=== PATIENT | female | born 2000 | race Caucasian/White ===

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

== ENCOUNTER 2020-01-05 17:45 | Emergency (ER) | payer MEDICAID ==
[2020-01-05 18:15] VITALS: BP 149/90; PULSE 105
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
== END 2020-01-05 18:25 | disposition home or self-care (01) ==
LOC: VM.ED 17:45
DX: K91.840 Postprocedural hemorrhage of a digestive system organ or structure following a digestive system procedure (principal); J45.909 Unspecified asthma, uncomplicated; F32.9 Major depressive disorder, single episode, unspecified; K21.9 Gastro-esophageal reflux disease without esophagitis; E66.9 Obesity, unspecified; Y83.6 Removal of other organ (partial) (total) as the cause of abnormal reaction of the patient, or of later complication, without mention of misadventure at the time of the procedure; Z90.49 Acquired absence of other specified parts of digestive tract; Z88.0 Allergy status to penicillin; Z88.8 Allergy status to other drugs, medicaments and biological substances; Z79.899 Other long term (current) drug therapy; Z79.51 Long term (current) use of inhaled steroids
CPT/HCPCS: 99283

== ENCOUNTER 2020-06-11 00:03 | Emergency (ER) | payer MEDICAID ==
[2020-06-11 00:11] VITALS: BP 142/83; PULSE 99
--- NOTE | 2020-06-11 09:40 | EDM.PDOC ---
ED HPI GENERAL MEDICAL PROBLEM - General Chief Complaint: ENT Problem Stated Complaint: foreign body to ear Time Seen by Provider: 06/11/20 00:05 Source of Information: Reports: Patient History Limitations: Reports: No Limitations - History of Present Illness INITIAL COMMENTS - FREE TEXT/NARRATIVE: Pt. is concerned that she has a q-tip tip in her R ear. She states that she was using a q-tip and states that the tip fell off and she thinks it might be in her ear. She complains of some fullness to the R ear but states she is able to hear. Pt. denies any trauma, bleeding, or injury to the ear. Onset Date: 06/10/20 Location: Reports: Head - Related Data Allergies Allergy/AdvReac Type Severity Reaction Status Date / Time amoxicillin Allergy Rash Verified 06/11/20 00:04 metformin Allergy Hives Verified 06/11/20 00:04 Home Meds: Home Meds Albuterol [Proair HFA] 2 puff INH Q4HR PRN 11/12/14 [History] Ethinyl Estradiol/Drospirenone [[place]en 28 Tablet] 1 each PO DAILY 10/23/19 [History] FLUoxetine HCl [Fluoxetine HCl] 40 mg PO DAILY 10/23/19 [History] Omeprazole 20 mg PO DAILY 10/23/19 [History] Cyclobenzaprine [Flexeril] 10 mg PO BEDTIME 11/28/19 [History] Fluticasone Propionate [Flonase] 1 spray IN DAILY 11/28/19 [History] Ibuprofen [Ibu] 600 mg PO Q8H PRN 11/28/19 [History] Mometasone/Formoterol [Dulera 100 Mcg/5 Mcg Inhaler] 2 puff IH BID 11/28/19 [History] Past Medical History - Past Health History Medical/Surgical History: Denies Medical/Surgical History Respiratory History: Reports: Asthma Gastrointestinal History: Reports: Cholelithiasis, GERD 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 closed right side multiple rib fx. vertebral compression fx. multiple pelvic fx Psychiatric History: Reports: Depression Endocrine/Metabolic History: Reports: Obesity/BMI 30+, Other (See Below) Other Endocrine/Metabolic History: insulin resistance - Past Surgical History HEENT Surgical History: Reports: Tonsillectomy Other HEENT Surgeries/Procedures: [place] teeth ED ROS GENERAL - Review of Systems Review Of Systems: Comprehensive ROS is negative, except as noted in HPI. ED EXAM, GENERAL - Physical Exam Exam: See Below Exam Limited By: No Limitations General Appearance: Alert, WD/WN, No Apparent Distress Eye Exam: Right Eye: Other (scant amount of clear fluid noted behind R TM. No obvious effusion noted. No trauma noted to the TM or the external canal.) Ears: Normal External Exam, Normal Canal, Hearing Grossly Normal, Normal TMs Ear Exam: Right Ear: Other (No foreign body noted in ear in question.) Course - Vital Signs Last Recorded V/S: Last Vital Signs Temp 36.2 C 06/11/20 00:08 Pulse 99 06/11/20 00:08 Resp 16 06/11/20 00:08 BP 142/83 H 06/11/20 00:08 Pulse Ox 98 06/11/20 00:08 Departure - Departure Time of Disposition: 00:38 Disposition: Home, Self-Care 01 Clinical Impression: Fluid collection of middle ear - Discharge Information Referrals: PCP,Antonyobtain [Primary Care Provider] - Forms: ED Department Discharge Additional Instructions: There is no foreign body but there is a small amount of fluid in the middle ear which may be causing the fullness. This will hopefully resolve on its own, but if it doesn't you can try over the counter benadryl or sudafed to help with getting rid of the fluid. Follow-up in clinic as needed. Sepsis Event Note (ED) - Evaluation Sepsis Screening Result: No Definite Risk - Focused Exam Vital Signs: Vital Signs Temp Pulse Resp BP Pulse Ox 06/11/20 00:08 36.2 C 99 16 142/83 H 98 - Problem List Review Problem List Initiated/Reviewed/Updated: Yes - Assessment/Plan Plan: There is no foreign body but there is a small amount of fluid in the middle ear which may be causing the fullness. This will hopefully resolve on its own, but if it doesn't you can try over the counter benadryl or sudafed to help with getting rid of the fluid. Follow-up in clinic as needed.
== END 2020-06-11 00:14 | disposition home or self-care (01) ==
LOC: VM.ED 00:03
DX: H74.8X1 Other specified disorders of right middle ear and mastoid (principal); J45.909 Unspecified asthma, uncomplicated; F32.9 Major depressive disorder, single episode, unspecified; E66.9 Obesity, unspecified; K21.9 Gastro-esophageal reflux disease without esophagitis; Z88.1 Allergy status to other antibiotic agents; Z88.8 Allergy status to other drugs, medicaments and biological substances; Z79.899 Other long term (current) drug therapy
CPT/HCPCS: 99282; 99283-GF

== ENCOUNTER 2020-08-19 17:09 | Emergency (ER) | payer MEDICAID ==
--- NOTE | 2020-08-19 18:18 | EDM.PDOC ---
ED HPI GENERAL MEDICAL PROBLEM - General Chief Complaint: ENT Problem Stated Complaint: FEVER,SORE THROAT,SOB Time Seen by Provider: 08/19/20 18:00 Source of Information: Reports: Patient History Limitations: Reports: No Limitations - History of Present Illness INITIAL COMMENTS - FREE TEXT/NARRATIVE: Patient presents to ER with complaints of headache, blurred vision at times, s ore throat, sinus congestion and cough. Does have a history of asthma, states has been using her proventil inhaler more than normal. Works at [employer], does feel the fog machine has exacerbated her asthma but worries about COVID exposure as she is around many people each day. Denies fever, does feel chilled at times. Feels short of breath. No nausea or vomiting. Has not lost her sense of taste or smell. Onset: Gradual Duration: Day(s): Location: Reports: Head, Chest Severity: Mild Associated Symptoms: Reports: Cough, Fever/Chills, Headaches, Shortness of Breath. Denies: Chest Pain, cough w sputum, Loss of Appetite, Nausea/Vomiting - Related Data Allergies Allergy/AdvReac Type Severity Reaction Status Date / Time amoxicillin Allergy Rash Verified 06/11/20 00:04 metformin Allergy Hives Verified 06/11/20 00:04 Home Meds: Home Meds Albuterol [Proair HFA] 2 puff INH Q4HR PRN 11/12/14 [History] Ethinyl Estradiol/Drospirenone [Maria Del Carmen 28 Tablet] 1 each PO DAILY 10/23/19 [Hist ory] FLUoxetine HCl [Fluoxetine HCl] 40 mg PO DAILY 10/23/19 [History] Omeprazole 20 mg PO DAILY 10/23/19 [History] Cyclobenzaprine [Flexeril] 10 mg PO BEDTIME 11/28/19 [History] Fluticasone Propionate [Flonase] 1 spray IN DAILY 11/28/19 [History] Ibuprofen [Ibu] 600 mg PO Q8H PRN 11/28/19 [History] Mometasone/Formoterol [Dulera 100 Mcg/5 Mcg Inhaler] 2 puff IH BID 11/28/19 [History] Past Medical History - Past Health History Medical/Surgical History: Denies Medical/Surgical History Respiratory History: Reports: Asthma Gastrointestinal History: Reports: Cholelithiasis, GERD 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 closed right side multiple rib fx. vertebral compression fx. multiple pelvic fx Psychiatric History: Reports: Depression Endocrine/Metabolic History: Reports: Obesity/BMI 30+, Other (See Below) Other Endocrine/Metabolic History: insulin resistance - Past Surgical History HEENT Surgical History: Reports: Tonsillectomy Other HEENT Surgeries/Procedures: [place] teeth Social & Family History - Tobacco Use Smoking Status *Q: Unknown Ever Smoked ED ROS GENERAL - Review of Systems Review Of Systems: See Below Constitutional: Reports: Chills, Malaise, Fatigue. Denies: Fever, Weakness, Decreased Appetite HEENT: Reports: Rhinitis, Throat Pain, Vision Change. Denies: Ear Pain, Sinus Problem Respiratory: Reports: Shortness of Breath, Wheezing, Cough Cardiovascular: Denies: Chest Pain, Edema, Lightheadedness Endocrine: Reports: Fatigue GI/Abdominal: Denies: Abdominal Pain, Nausea, Vomiting : Reports: No Symptoms Musculoskeletal: Reports: No Symptoms Skin: Reports: No Symptoms Neurological: Reports: No Symptoms Psychiatric: Reports: No Symptoms ED EXAM, GENERAL - Physical Exam Exam: See Below Exam Limited By: No Limitations General Appearance: Alert, WD/WN, No Apparent Distress Ears: Normal External Exam, Normal TMs Nose: Normal Inspection, Normal Mucosa, Clear Rhinorrhea Throat/Mouth: Normal Inspection, Normal Oropharynx Head: Normocephalic Neck: Normal Inspection, Supple, Non-Tender Respiratory/Chest: No Respiratory Distress, Lungs Clear, Normal Breath Sounds Cardiovascular: Regular Rate, Rhythm GI/Abdominal: Normal Bowel Sounds, No Distention Extremities: Normal Inspection, No Pedal Edema Neurological: Alert, Oriented Skin Exam: Warm, Dry Course - Orders/Labs/Meds Orders: Active Orders 24 hr Category Date Time Status predniSONE [Take Home: predniSONE 20 MG, 2 Tab Pack] Med 08/19/20 18:19 Once 1 packet PO ONETIME ONE Labs: Laboratory Tests 08/19/20 08/19/20 Range/Units 17:25 17:45 SARS CoV-2 RNA Rapid CIARRA Invalid A Negative (NEGATIVE) Meds: Medications Discontinued Medications Generic Name Dose Route Start Last Admin Trade Name Freq PRN Reason Stop Dose Admin Prednisone 1 packet 08/19/20 18:19 Take Home: Prednisone 20 Mg, 2 Tab Pack PO 08/19/20 18:20 ONETIME ONE - Re-Assessments/Exams Free Text/Narrative Re-Assessment/Exam: 08/19/20 18:28 COVID testing negative. Departure - Departure Time of Disposition: 18:28 Disposition: Home, Self-Care 01 Condition: Good Clinical Impression: Upper respiratory infection, Asthma - Discharge Information *PRESCRIPTION DRUG MONITORING PROGRAM REVIEWED*: No *COPY OF PRESCRIPTION DRUG MONITORING REPORT IN PATIENT LU: No Instructions: Viral Respiratory Infection, [id number] Referrals: Martha Pittman MD [Primary Care Provider] - Forms: ED Department Discharge Additional Instructions: 1. Rest 2. Push fluids 3. Tylenol or ibuprofen for fever or discomfort 4. Prednisone 40 mg daily for 5 days 5. Follow up with PCP if symptoms persist - My Orders Last 24 Hours: My Active Orders 08/19/20 18:19 predniSONE [Take Home: predniSONE 20 MG, 2 Tab Pack] 1 packet PO ONETIME ONE - Assessment/Plan Last 24 Hours: My Active Orders 08/19/20 18:19 predniSONE [Take Home: predniSONE 20 MG, 2 Tab Pack] 1 packet PO ONETIME ONE
[2020-08-19] MEDS ORDERED: Take Home: predniSONE 20 MG, 2 Tab Pack PO ONE (18:19)
[2020-08-19 19:38] VITALS: BP 137/72; PULSE 88
== END 2020-08-19 19:05 | disposition home or self-care (01) ==
LOC: VM.ED 17:09
DX: J06.9 Acute upper respiratory infection, unspecified (principal); J45.909 Unspecified asthma, uncomplicated; F32.9 Major depressive disorder, single episode, unspecified; K21.9 Gastro-esophageal reflux disease without esophagitis; Z79.899 Other long term (current) drug therapy; E66.9 Obesity, unspecified; Z68.31 Body mass index [BMI] 31.0-31.9, adult; Z20.828 Contact with and (suspected) exposure to other viral communicable diseases; Z88.1 Allergy status to other antibiotic agents; Z88.8 Allergy status to other drugs, medicaments and biological substances
CPT/HCPCS: 99284; J7512; U0002

== ENCOUNTER 2020-11-17 15:50 | Emergency (ER) | payer MEDICAID ==
--- NOTE | 2020-11-17 16:08 | EDM.PDOC ---
ED HPI GENERAL MEDICAL PROBLEM - General Chief Complaint: Gastrointestinal Problem Stated Complaint: NAUSEA,BACK PAIN Time Seen by Provider: 11/17/20 16:00 Source of Information: Reports: Patient History Limitations: Reports: No Limitations - History of Present Illness INITIAL COMMENTS - FREE TEXT/NARRATIVE: Patient presents the ER with ongoing nausea times several hours vomiting x3 loose bowel movements x3 also states she has some mid upper back pain that is about a 3 out of 10. She has no other complaints at this time she denies being around anybody exposed to Covid has no other signs or symptoms at this time Patient states last menstrual period was 09 November she was seen in the clinic here had a normal exam medication refilled and a negative test Onset: Today Duration: Hour(s): Location: Reports: Back Severity: Mild Improves with: Reports: None Worsens with: Reports: None Associated Symptoms: Reports: Nausea/Vomiting. Denies: Cough, Fever/Chills, Headaches, Loss of Appetite, Seizure, Shortness of Breath, Weakness - Related Data Allergies Allergy/AdvReac Type Severity Reaction Status Date / Time amoxicillin Allergy Rash Verified 08/19/20 19:38 metformin Allergy Hives Verified 08/19/20 19:38 Home Meds: Home Meds Albuterol [Proair HFA] 2 puff INH Q4HR PRN 11/12/14 [History] Ethinyl Estradiol/Drospirenone [Maria Del Carmen 28 Tablet] 1 each PO DAILY 10/23/19 [History] FLUoxetine HCl [Fluoxetine HCl] 40 mg PO DAILY 10/23/19 [History] Omeprazole 20 mg PO DAILY 10/23/19 [History] Cyclobenzaprine [Flexeril] 10 mg PO BEDTIME 11/28/19 [History] Fluticasone Propionate [Flonase] 1 spray IN DAILY 11/28/19 [History] Ibuprofen [Ibu] 600 mg PO Q8H PRN 11/28/19 [History] Mometasone/Formoterol [Dulera 100 Mcg/5 Mcg Inhaler] 2 puff IH BID 11/28/19 [History] Past Medical History - Past Health History Medical/Surgical History: Denies Medical/Surgical History Respiratory History: Reports: Asthma Gastrointestinal History: Reports: Cholelithiasis, GERD 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 closed right side multiple rib fx. vertebral compression fx. multiple pelvic fx Psychiatric History: Reports: Depression Endocrine/Metabolic History: Reports: Obesity/BMI 30+, Other (See Below) Other Endocrine/Metabolic History: insulin resistance - Past Surgical History HEENT Surgical History: Reports: Tonsillectomy Other HEENT Surgeries/Procedures: [place] teeth ED ROS GENERAL - Review of Systems Review Of Systems: See Below Constitutional: Reports: No Symptoms HEENT: Reports: No Symptoms Respiratory: Reports: No Symptoms Cardiovascular: Reports: No Symptoms Endocrine: Reports: No Symptoms GI/Abdominal: Reports: Diarrhea, Nausea, Vomiting. Denies: Abdominal Pain, Constipation, Decreased Appetite : Reports: No Symptoms. Denies: Dysuria, Flank Pain, Frequency, Hematuria, Irregular Menses, Pain, Urgency Musculoskeletal: Reports: No Symptoms Skin: Reports: No Symptoms Neurological: Reports: No Symptoms Psychiatric: Reports: No Symptoms Hematologic/Lymphatic: Reports: No Symptoms Immunologic: Reports: No Symptoms ED EXAM, GI/ABD - Physical Exam Exam: See Below Exam Limited By: No Limitations General Appearance: Alert, WD/WN, No Apparent Distress, Other (Patient sitting on side of the bed swelling in legs back and forth no acute distress) Eyes: Bilateral: Normal Appearance Ears: Normal External Exam, Normal Canal, Hearing Grossly Normal, Normal TMs Nose: Normal Inspection, Normal Mucosa, No Blood Throat/Mouth: Normal Inspection, Normal Lips, Normal Teeth, Normal Gums, Normal Oropharynx, Normal Voice, No Airway Compromise Head: Atraumatic, Normocephalic Neck: Normal Inspection, Supple, Non-Tender, Full Range of Motion Respiratory/Chest: No Respiratory Distress, Lungs Clear, Normal Breath Sounds, No Accessory Muscle Use, Chest Non-Tender Cardiovascular: Normal Peripheral Pulses, Regular Rate, Rhythm, No Edema, No Gallop, No JVD, No Murmur, No Rub GI/Abdominal Exam: Normal Bowel Sounds, Soft, Non-Tender, No Organomegaly, No Distention, No Abnormal Bruit, Other (neg CVA ttp blat neg pelvic rock NO TTP ). No: Guarding, Rigid, Rebound, Tender Back Exam: Normal Inspection, Full Range of Motion. No: CVA Tenderness (L), CVA Tenderness (R) Extremities: Normal Inspection, Normal Range of Motion, Non-Tender, No Pedal Edema, Normal Capillary Refill Neurological: Alert, Oriented, CN II-XII Intact, Normal Cognition, Normal Gait, Normal Reflexes, No Motor/Sensory Deficits Psychiatric: Normal Affect, Normal Mood Skin Exam: Warm, Dry, Intact, Normal Color, No Rash Course - Vital Signs Text/Narrative:: Patient will be given 25 mg of Phenergan IM here along with take-home packets instructed drink small amounts of fluids over the next 24 hours told to return to the emergency room if anything changes or gets worse follow-up with a primary care provider in the next 24 to 48 hours Departure - Departure Time of Disposition: 16:15 Disposition: Home, Self-Care 01 Condition: Good Clinical Impression: Nausea & vomiting, Back pain - Discharge Information *PRESCRIPTION DRUG MONITORING PROGRAM REVIEWED*: Not Applicable *COPY OF PRESCRIPTION DRUG MONITORING REPORT IN PATIENT LU: Not Applicable Referrals: Martha Pittman MD [Primary Care Provider] - Forms: ED Department Discharge - Problem List & Annotations (1) Back pain SNOMED Code(s): 979343475 Code(s): M54.9 - DORSALGIA, UNSPECIFIED Status: Acute (2) Nausea & vomiting SNOMED Code(s): 95679906 Code(s): R11.2 - NAUSEA WITH VOMITING, UNSPECIFIED Status: Acute
[2020-11-17 16:12] VITALS: BP 169/105; PULSE 100
[2020-11-17] MEDS: Promethazine 25 MG/ML SDV IM ONE (16:22)
[2020-11-17] MEDS: Take Home: Promethazine 25 MG, 4 Tab Pack PO ONE (16:23)
== END 2020-11-17 16:30 | disposition home or self-care (01) ==
LOC: VM.ED 15:50
DX: R11.2 Nausea with vomiting, unspecified (principal); M54.6 Pain in thoracic spine; J45.909 Unspecified asthma, uncomplicated; K21.9 Gastro-esophageal reflux disease without esophagitis; F32.9 Major depressive disorder, single episode, unspecified; E66.9 Obesity, unspecified; Z68.42 Body mass index [BMI] 45.0-49.9, adult; Z88.1 Allergy status to other antibiotic agents; Z88.8 Allergy status to other drugs, medicaments and biological substances; Z79.899 Other long term (current) drug therapy
CPT/HCPCS: 96372; 99283; A9270; J2550; 99284

== ENCOUNTER 2021-06-24 21:51 | Emergency (ER) | payer MEDICAID ==
--- NOTE | 2021-06-24 22:40 | EDM.PDOC ---
ED HPI GENERAL MEDICAL PROBLEM - General Stated Complaint: LUNGS ARE BURNING Time Seen by Provider: 06/24/21 22:30 Source of Information: Reports: Patient History Limitations: Reports: No Limitations - History of Present Illness INITIAL COMMENTS - FREE TEXT/NARRATIVE: Patient complains of " lungs burning" cough with sputum and shortness of breath since yesterday. Has been outside some in the smoke. Has not had covid, no vaccinations, no ill people she is aware of. Has an inhaler but not using it. No fevers. yellow sputum. Took a decongestant and did help. Onset Date: 06/23/21 Location: Reports: Chest Worsens with: Reports: Breathing Associated Symptoms: Reports: Cough, cough w sputum. Denies: Fever/Chills, Headaches, Nausea/Vomiting - Related Data Allergies Allergy/AdvReac Type Severity Reaction Status Date / Time amoxicillin Allergy Rash Verified 08/19/20 19:38 metformin Allergy Hives Verified 08/19/20 19:38 Home Meds: Home Meds Albuterol [Proair HFA] 2 puff INH Q4HR PRN 11/12/14 [History] Ethinyl Estradiol/Drospirenone [Maria Del Carmen 28 Tablet] 1 each PO DAILY 10/23/19 [History] FLUoxetine HCl [Fluoxetine HCl] 40 mg PO DAILY 10/23/19 [History] Omeprazole 20 mg PO DAILY 10/23/19 [History] Cyclobenzaprine [Flexeril] 10 mg PO BEDTIME 11/28/19 [History] Fluticasone Propionate [Flonase] 1 spray IN DAILY 11/28/19 [History] Ibuprofen [Ibu] 600 mg PO Q8H PRN 11/28/19 [History] Mometasone/Formoterol [Dulera 100 Mcg/5 Mcg Inhaler] 2 puff IH BID 11/28/19 [History] predniSONE [Prednisone] 40 mg PO DAILY 4 Days #4 tablet 06/24/21 [Rx] Past Medical History - Past Health History Medical/Surgical History: Denies Medical/Surgical History Respiratory History: Reports: Asthma Gastrointestinal History: Reports: Cholelithiasis, GERD 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 closed right side multiple rib fx. vertebral compression fx. multiple pelvic fx Psychiatric History: Reports: Depression Endocrine/Metabolic History: Reports: Obesity/BMI 30+, Other (See Below) Other Endocrine/Metabolic History: insulin resistance - Past Surgical History HEENT Surgical History: Reports: Tonsillectomy Other HEENT Surgeries/Procedures: [place] teeth Social & Family History - Recreational Drug Use Recreational Drug Use: No Drug Use in Last 12 Months: No ED ROS GENERAL - Review of Systems Review Of Systems: See Below Constitutional: Reports: Fatigue. Denies: Fever, Chills, Night Sweats, Diaphoresis HEENT: Reports: Sinus Problem. Denies: Dental Pain, Ear Discharge, Throat Pain Respiratory: Reports: Shortness of Breath, Cough, Sputum Cardiovascular: Denies: Chest Pain, Dyspnea on Exertion, Edema Endocrine: Reports: No Symptoms GI/Abdominal: Reports: No Symptoms. Denies: Abdominal Pain, Decreased Appetite, Melena, Nausea, Vomiting : Reports: No Symptoms Musculoskeletal: Reports: No Symptoms. Denies: Neck Pain, Back Pain Skin: Reports: No Symptoms Neurological: Reports: No Symptoms ED EXAM, GENERAL - Physical Exam Exam: See Below Exam Limited By: No Limitations General Appearance: Alert, WD/WN, No Apparent Distress Eye Exam: Bilateral Eye: EOMI, Normal Inspection, PERRL Nose: Normal Inspection, Normal Mucosa Throat/Mouth: Normal Inspection, Normal Lips, Normal Teeth, Normal Voice Head: Atraumatic, Normocephalic Neck: Normal Inspection, Supple, Non-Tender Respiratory/Chest: No Respiratory Distress, Lungs Clear, Normal Breath Sounds, Chest Non-Tender Cardiovascular: Normal Peripheral Pulses, Regular Rate, Rhythm GI/Abdominal: Normal Bowel Sounds Back Exam: Normal Inspection, Full Range of Motion Extremities: Normal Inspection, Normal Range of Motion Neurological: Alert, Oriented, CN II-XII Intact, No Motor/Sensory Deficits Course - Orders/Labs/Meds Orders: Active Orders 24 hr Category Date Time Status Chest 2V [CR] Stat Exams 06/24/21 22:30 Taken Labs: Laboratory Tests 06/24/21 Range/Units 22:45 SARS CoV-2 RNA Rapid CIARRA Negative (NEGATIVE) Meds: Medications Discontinued Medications Generic Name Dose Route Start Last Admin Trade Name Freq PRN Reason Stop Dose Admin Prednisone 40 mg 06/24/21 23:23 Prednisone 20 Mg Tab PO 06/24/21 23:24 ONETIME ONE - Radiology Interpretation Free Text/Narrative:: no acute, on chest x-ray, preliminary read only - Re-Assessments/Exams Free Text/Narrative Re-Assessment/Exam: 06/24/21 22:39 will check a chest x-ray and covid swab. SAts 98% no respiratory distress. Has inhaler at home, not using 06/24/21 23:31 will give a dose of prednisone here. four more days. has inhaler at home. Viral uri with asthma and exacerbation due to smoke, follow up with PCP if not improving Departure - Departure Time of Disposition: 23:32 Disposition: Home, Self-Care 01 Clinical Impression: Upper respiratory infection, Asthma attack - Discharge Information *PRESCRIPTION DRUG MONITORING PROGRAM REVIEWED*: Not Applicable *COPY OF PRESCRIPTION DRUG MONITORING REPORT IN PATIENT LU: Not Applicable Prescriptions: predniSONE [Prednisone] 40 mg PO DAILY 4 Days #4 tablet Instructions: Asthma, Adult, Viral Respiratory Infection, [id number], Metered Dose Inhaler (No Spacer Used), Asthma Attack Prevention, Adult Additional Instructions: Take the prednisone once daily. you were given a dose in the ER, fill prescription tomorrow. Follow up with PCP if not improving. use your inhaler 2 puffs every 4-6 hours as needed for cough and shortness of breath - My Orders Last 24 Hours: My Active Orders 06/24/21 22:30 Chest 2V [CR] Stat - Assessment/Plan Last 24 Hours: My Active Orders 06/24/21 22:30 Chest 2V [CR] Stat
[2021-06-24] MEDS: predniSONE 20 MG Tab PO ONE (23:41)
[2021-06-25 04:01] VITALS: BP 144/81; PULSE 85
--- NOTE | 2021-06-25 08:47 | CR ---
[id number] RAD/RAD Chest PA And Lateral EXAM: RAD Chest PA And Lateral INDICATION: COUGH,SHORT OF BREATH. COMPARISON: May 2017. DISCUSSION/IMPRESSION: Cardiomediastinal silhouette is normal in size and contour. Lungs are clear. No pleural effusion or pneumothorax. Joey Jones MD 06/25/21 0856 Thank you for allowing us to participate in the care of your patient.
== END 2021-06-24 23:45 | disposition home or self-care (01) ==
LOC: VM.ED 21:51
DX: J06.9 Acute upper respiratory infection, unspecified (principal); J45.909 Unspecified asthma, uncomplicated; E66.9 Obesity, unspecified; Z68.43 Body mass index [BMI] 50.0-59.9, adult; Z79.899 Other long term (current) drug therapy; Z88.0 Allergy status to penicillin; Z88.8 Allergy status to other drugs, medicaments and biological substances; Z20.822 Contact with and (suspected) exposure to COVID-19
CPT/HCPCS: 71046; 87635; 99283; 99285; J7512; U0002

== ENCOUNTER 2021-07-06 13:08 | Emergency (ER) | payer MEDICAID ==
[2021-07-06] MEDS ORDERED: Take Home: Cephalexin 500 MG Cap, 4 Cap Pack PO ONE (13:24)
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
[2021-07-06] MEDS ORDERED: Cephalexin 500 MG Cap PO ONE (13:33)
[2021-07-06 13:35] VITALS: BP 112/81; PULSE 82
[2021-07-06] MEDS ORDERED: Fluconazole 100 MG Tab PO ONE (13:51)
== END 2021-07-06 14:01 | disposition home or self-care (01) ==
LOC: VM.ED 13:08
DX: S81.802A Unspecified open wound, left lower leg, initial encounter (principal); L08.9 Local infection of the skin and subcutaneous tissue, unspecified; J45.909 Unspecified asthma, uncomplicated; K21.9 Gastro-esophageal reflux disease without esophagitis; E66.9 Obesity, unspecified; Z88.0 Allergy status to penicillin; Z88.8 Allergy status to other drugs, medicaments and biological substances; Z79.899 Other long term (current) drug therapy; X58.XXXA Exposure to other specified factors, initial encounter
CPT/HCPCS: 99283; A9270-GY

== ENCOUNTER 2021-12-08 20:44 | Emergency (ER) | payer BC, MEDICAID ==
[2021-12-08 23:02] LABS: CORONAVIRUS COVID-19 NAA POSITIVE (NEGATIVE); RESPIRATORY SYNCYTIAL VIR NAA NEGATIVE (NEGATIVE)
[2021-12-09 06:15] VITALS: BP 138/73; PULSE 94
== END 2021-12-08 23:20 | disposition home or self-care (01) ==
LOC: VM.ED 20:44
DX: O98.511 Other viral diseases complicating pregnancy, first trimester (principal); U07.1 COVID-19; O99.511 Diseases of the respiratory system complicating pregnancy, first trimester; J45.909 Unspecified asthma, uncomplicated; O99.611 Diseases of the digestive system complicating pregnancy, first trimester; K21.9 Gastro-esophageal reflux disease without esophagitis; O99.211 Obesity complicating pregnancy, first trimester; E66.9 Obesity, unspecified; Z88.0 Allergy status to penicillin; Z88.8 Allergy status to other drugs, medicaments and biological substances; Z79.899 Other long term (current) drug therapy; Z3A.11 11 weeks gestation of pregnancy
CPT/HCPCS: 0241U; 99283

== ENCOUNTER 2021-12-19 20:47 | Emergency (ER) | payer BC, MEDICAID ==
[2021-12-19 21:31] VITALS: BP 156/102; PULSE 94
[2021-12-19 21:58] LABS: CHLORIDE,CL 105 mmol/L (98-107); SODIUM,NA 139 mmol/L (136-145)
[2021-12-19 22:00] LABS: ANION GAP 14.5 mmol/L (5-15)
== END 2021-12-19 22:18 | disposition home or self-care (01) ==
LOC: VM.ED 20:47
DX: J45.909 Unspecified asthma, uncomplicated (principal); K21.9 Gastro-esophageal reflux disease without esophagitis; E66.9 Obesity, unspecified; Z68.43 Body mass index [BMI] 50.0-59.9, adult; Z88.0 Allergy status to penicillin; Z88.8 Allergy status to other drugs, medicaments and biological substances; Z79.899 Other long term (current) drug therapy
CPT/HCPCS: 36415; 80053; 83735; 85025; 85379; 86140; 99284

== ENCOUNTER 2022-05-06 19:14 | Emergency (ER) | payer MEDICAID ==
[2022-05-06] MEDS ORDERED: Ondansetron 4 MG/2 ML SDV IVPUSH ONE (19:38)
[2022-05-06] MEDS ORDERED: Labetalol 20 MG/4 ML Syringe IVPUSH ONE (20:04)
[2022-05-06] MEDS ORDERED: fentaNYL 50 MCG/ML SDV IVPUSH ONE (20:04)
[2022-05-06 20:06] LABS: CHLORIDE,CL 107 mmol/L (98-107); SODIUM,NA 137 mmol/L (136-145)
[2022-05-06 20:09] LABS: ANION GAP 16.2 mmol/L (5-15); ESTIMATED GFR 82 mL/min (>=60)
[2022-05-06] MEDS ORDERED: Sodium Chloride 0.9% 1,000 ML IV SCH (20:30)
[2022-05-06 21:07] VITALS: BP 154/119; PULSE 86
== END 2022-05-06 20:38 | disposition short-term general hospital (02) ==
LOC: VM.ED 19:14
DX: O99.891 Other specified diseases and conditions complicating pregnancy (principal); R10.10 Upper abdominal pain, unspecified; M54.9 Dorsalgia, unspecified; O13.3 Gestational [pregnancy-induced] hypertension without significant proteinuria, third trimester; O99.613 Diseases of the digestive system complicating pregnancy, third trimester; K21.9 Gastro-esophageal reflux disease without esophagitis; O99.343 Other mental disorders complicating pregnancy, third trimester; F32.A Depression, unspecified; Z88.8 Allergy status to other drugs, medicaments and biological substances; Z88.0 Allergy status to penicillin; Z3A.32 32 weeks gestation of pregnancy
CPT/HCPCS: 80053; 82150; 83690; 85025; 86140; 96374; 96375; 99284; 99284-25; J2405; J3010; J3490; J7030

== ENCOUNTER 2023-06-18 21:57 | Emergency (ER) | payer MEDICAID ==
[2023-06-18] MEDS ORDERED: Acetaminophen 325 MG Tab PO ONE (22:14)
[2023-06-18] MEDS ORDERED: Sodium Chloride 0.9% 1,000 ML IV ONE (22:21)
[2023-06-18 22:32] LABS: BASOPHILS PERCENT AUTO 0.3 % (0.2-1.2); EOSINOPHILS ABSOLUTE AUTO 0.1 x10^3/uL (0.0-0.5); EOSINOPHILS PERCENT AUTO 0.7 % (0.0-4.0); HEMATOCRIT 36.3 % (33.0-47.0); HEMOGLOBIN 12.4 g/dL (12.0-16.0); IMMATURE GRAN ABSOLUTE AUTO 0.01 x10^3/uL (0.00-0.07); LYMPHOCYTES ABSOLUTE AUTO 0.4 x10^3/uL (1.0-4.8); LYMPHOCYTES PERCENT AUTO 6.4 % (25.0-50.0); MEAN CORPUSCULAR HEMOGLOBIN 26.8 pg (26.0-32.0); MEAN CORPUSCULAR HGB CONC 34.2 g/dL (32.0-36.0); MEAN CORPUSCULAR VOLUME 78.6 fL (78.0-93.0); MONOCYTES ABSOLUTE AUTO 0.6 x10^3/uL (0.0-0.8); MONOCYTES PERCENT AUTO 9.3 % (2.0-11.0); NEUTROPHILS ABSOLUTE AUTO 5.6 x10^3/uL (1.8-7.7); NEUTROPHILS PERCENT AUTO 83.2 % (50.0-80.0); PLATELET COUNT,PLT 244 x10^3/uL (130-400); RED BLOOD CELL COUNT 4.62 x10^6/uL (4.00-5.50); WHITE BLOOD CELL COUNT,WBC 6.7 x10^3/uL (4.0-10.0)
[2023-06-18 22:40] VITALS: BP 152/82; PULSE 114
[2023-06-18 22:49] LABS: A/G RATIO 0.97; ALBUMIN 3.3 g/dL (3.4-5.0); BILIRUBIN TOTAL 0.2 mg/dL (0.2-1.0); C-REACTIVE PROTEIN 1.24 mg/dL (<=0.30); CALCIUM 8.7 mg/dL (8.5-10.1); CREATININE 0.9 mg/dL (0.55-1.02); EST CRCL DRUG DOSING (CG) 80.42 mL/min; PROTEIN TOTAL,TP 6.7 g/dL (6.4-8.2)
[2023-06-18 23:08] LABS: APPEARANCE,URINE CLEAR (CLEAR); BILIRUBIN,URINE NEGATIVE (NEGATIVE); COLOR,URINE YELLOW (YELLOW); GLUCOSE,URINE NEGATIVE (NEGATIVE); KETONES,URINE NEGATIVE (NEGATIVE); LEUKOCYTE ESTERASE,URINE NEGATIVE (NEGATIVE); NITRITE,URINE NEGATIVE (NEGATIVE); OCCULT BLOOD,URINE NEGATIVE (NEGATIVE); PROTEIN,URINE 30 mg/dL (NEGATIVE); UROBILINOGEN,URINE 0.2 EU/dL (0.2)
[2023-06-18 23:12] LABS: CORONAVIRUS COVID-19 NAA POSITIVE (NEGATIVE)
[2023-06-18 23:13] LABS: INFLUENZA A NAA NEGATIVE (NEGATIVE); INFLUENZA B NAA NEGATIVE (NEGATIVE); STREP A BY PCR NOT DETECTED (NOT DETECT)
[2023-06-18 23:15] LABS: BACTERIA,URINE RARE /HPF (NOT SEEN); MUCUS,URINE OCCASIONAL /LPF (NOT SEEN); RBC,URINE 0-5 /HPF (NOT SEEN); SQUAMOUS EPITHELIAL CELLS,UR FEW /HPF (NOT SEEN); WBC,URINE 0-5 /HPF (NOT SEEN)
== END 2023-06-18 23:28 | disposition home or self-care (01) ==
LOC: VM.ED 21:57
DX: U07.1 COVID-19 (principal); J45.909 Unspecified asthma, uncomplicated; K21.9 Gastro-esophageal reflux disease without esophagitis; E66.9 Obesity, unspecified; Z68.43 Body mass index [BMI] 50.0-59.9, adult; Z88.0 Allergy status to penicillin; Z88.8 Allergy status to other drugs, medicaments and biological substances; Z20.822 Contact with and (suspected) exposure to COVID-19
CPT/HCPCS: 0240U; 36415; 71046; 80053; 81001; 83605; 84145; 85025; 86140; 87040; 87651-QW; 96360; 99283; 99285-25; A9270-GY; J7030